=== PATIENT | female | born 1980 | race African-American/Black ===

== ENCOUNTER 2024-03-03 18:21 | Emergency (ER) | payer MEDICARE, SELFPAY ==
[2024-03-03 18:26] VITALS: BP 120/83
[2024-03-03 19:21] LABS: % Basophils 0.6 % (0-2); % Eosinophils 4.3 % (0-6); % Immature Granulocytes 0.2 % (0-0.5); % Lymphocytes 29.4 % (20.5-51.1); % Monocytes 8.3 % (1.7-9.3); % Neutrophils 57.2 % (42.2-75.2); Absolute Basophils 0.1 10^3/uL (0-0.2); Absolute Eosinophils 0.4 10^3/uL (0-0.7); Absolute Lymphocytes 2.4 10^3/uL (1.2-3.4); Absolute Monocytes 0.7 10^3/uL (0.1-0.6); Absolute Neutrophils 4.7 10^3/uL (1.4-6.5); Hematocrit 31.3 % (37.0-47.0); Hemoglobin 11.1 g/dL (12.0-16.0); Mean Corp Hgb Conc. 35.5 g/dL (33.0-37.0); Mean Corpuscular Hgb 30.2 pg (27.0-31.0); Mean Corpuscular Volume 85.3 fL (81.0-99.0); Mean Platelet Volume 9.1 fL (7.4-10.4); Nucleated Red Blood Cells % 0 %; Platelet Count 297 10^3/uL (130-400); Red Blood Cell Count 3.67 10^6/uL (4.20-5.40); Red Cell Dist. Width 14.7 % (11.5-14.5); White Blood Cell Count 8.2 10^3/uL (4.8-10.8)
[2024-03-03 19:42] LABS: ALT (SGPT) 21 U/L (0-35); AST (SGOT) 30 U/L (14-36); Alkaline Phosphatase 79 U/L (38-126); Blood Urea Nitrogen 12 mg/dl (7-17); Calcium 9.8 mg/dl (8.4-10.2); Carbon Dioxide 25 mmol/L (22-30); Chloride 106 mmol/L (98-107); Glucose 93 mg/dl (70-99); Potassium 4.9 mmol/L (3.5-5.1); Sodium 141 mmol/L (135-145); Total Bilirubin 0.5 mg/dl (0.2-1.3); Total Protein 7.1 g/dl (6.3-8.2); eGFR > 60.00
[2024-03-03 19:45] LABS: Troponin I < 0.012 ng/ml
[2024-03-03 20:43] VITALS: BP 125/75
--- NOTE | 2024-03-03 21:11 | ED.GENMED ---
History of Present Illness
General
Chief Complaint: Chest Pain
Time Seen by Provider: 03/03/24 20:51
History of Present Illness
History of Present Illness:
43-year-old female presents to the emergency department for evaluation of chest pain and cough productive of thick sputum. She states that at the end of January she was admitted to [facility] for pneumonia and treated with antibiotics.
She was discharged after 2 days and completed a course of antibiotics, shortly after completion she had recurrence of symptoms and followed up with pulmonology, was then put on a second course of antibiotics with a course of steroids which she
completed approximately 1 week ago. States that the symptoms never fully resolved. She denies any fevers but does have occasional chills. No nausea or vomiting. No prior lung pathology that has been diagnosed. She also notes that she has wounds
to the right ankle and worsening leg swelling that has been ongoing since being treated for pneumonia. Plans to follow-up with vascular surgery next month.
Review of Systems
Review of Systems
Allergies reviewed?: Yes
All Other Systems: ROS reviewed and negative except as documented in HPI and ROS
Phy Exam
Physical Exam
Physical Exam:
GEN: Well appearing, NAD, WDWN
HEENT: Oral mucosa moist, no scleral icterus
Cardiac: Regular rate and rhythm
Lung: No respiratory distress, no tachypnea, lungs grossly clear to auscultation
MSK: No gross deformity or injuries
Skin: Good color, no pallor or jaundice, no rashes. Superficial ulcerations to the right medial ankle anteriorly and posteriorly with diffuse bilateral pitting edema
Neuro: AO x3, moves all extremities freely
Psych: Calm, cooperative
Scores
Heart Score for Chest Pain Patients
STEMI patient?: Not applicable
Course
Orders/Labs/Results
Orders:
Orders
03/03/24 18:22
Electrocardiogram (*1) Urgent
Reason for Study: Chest Pain
EKG- Treatment ONCE
03/03/24 19:15
CMP [Comprehensive Metabolic Panel] Urgent
Complete Blood Count/With Diff Urgent
Troponin I Urgent
03/03/24 20:51
CR Chest - 2 Views Urgent
Comment:
Reason For Exam: chest pain
Abnormal Lab Results
03/03/24
19:15
RBC 3.67 L 10^6/uL
(4.20-5.40)
Hgb 11.1 L g/dL
(12.0-16.0)
Hct 31.3 L %
(37.0-47.0)
RDW 14.7 H %
(11.5-14.5)
Absolute Monos (auto) 0.7 H 10^3/uL
(0.1-0.6)
03/03/24 19:15
03/03/24 19:15
Vital Signs
Initial and Last Documented VS:
Initial Vital Signs
Temp Pulse Resp BP Pulse Ox
99.1 F 77 20 120/83 99
03/03/24 18:26 03/03/24 18:26 03/03/24 18:26 03/03/24 18:26 03/03/24 18:26
Last Documented Vital Signs
Temp Pulse Resp BP Pulse Ox
99.1 F 80 20 125/75 99
03/03/24 18:26 03/03/24 20:43 03/03/24 18:26 03/03/24 20:43 03/03/24 20:43
MDM/Problems Addressed
MDM/Problems Addressed:
43-year-old female presents with persistent cough productive of mucus and chest discomfort. EKG is nonischemic and labs are reassuring. X-ray shows no evidence for pneumonia. No indication for repeat course of antibiotics at this point.
Recommend outpatient pulmonology follow-up
Comment
Comment:
EKG independently interpreted by me shows normal sinus rhythm at a rate of [address] changes concerning for ischemia, QT interval is prolonged at 497
*Critical Care Note
Total Time (30-74mins, 75-104mins- exclusive of procedures): Not Applicable
ED Attending Note
-
Portions of this chart may have been created with voice recognition software.� Occasional wrong word or��sound alike� substitutions may have occurred due to the inherent limitations of voice recognition software.
Discharge Plan
Departure
Patient Disposition: Home (Routine Discharge)
Date of Disposition: 03/03/24
Time of Disposition: 21:57
Patient with high blood pressure during this ER visit?: No
Discharge Problem:
Cough
Instructions: Chest Pain That Is Not Caused by the Heart (DC)
Referrals:
Gracie Smalls MD [Family Provider] -
Activity Restrictions/Additional Instructions:
Your Xray shows no evidence for pneumonia
Your labs are normal
Your EKG shows a 'long QT interval'. This may be a minor abnormality only seen here, however please note this abnormality to future healthcare providers, as it may affect prescription medicines
Follow up with your chummer and discuss whether a steroid inhaler may be of benefit
Interventions
Interventions:
*Risk Screen - Suicide Last Done: 03/03/24 18:26
*General Assessment Last Done: 03/03/24 18:26
*Neglect/Abuse Screening Last Done: 03/03/24 18:26
ED- Cardiac Assessment Last Done: 03/03/24 21:37
Discharge Date and Time
Print Language: YI
[2024-03-03 22:06] VITALS: BP 136/89
== END 2024-03-03 22:06 | disposition home or self-care (01) ==
LOC: EMR 18:21
PROVIDERS: Student in an Organized Health Care Education/Training Program; EMERGENCY PHYSICIAN Emergency Medicine; FAMILY PHYSICIAN Internal Medicine
DX: R05.9 Cough, unspecified (principal)
CPT/HCPCS: 99285; 71046; 80053; 84484; 85025; 93005